=== PATIENT | male | born 1935 | race Caucasian/White ===

== ENCOUNTER 2020-01-22 11:56 | Emergency (ER) | payer MEDICARE ==
[2020-01-22 13:35] VITALS: BP 150/71; PULSE 100
[2020-01-22] MEDS ORDERED: Acetaminophen 325 MG Tab PO ONE (13:38)
[2020-01-22] MEDS ORDERED: Acetaminophen 325 MG Tab ONE (14:09)
[2020-01-22] MEDS ORDERED: Cyclobenzaprine 10 MG Tab PO ONE (14:15)
[2020-01-22] MEDS ORDERED: Cyclobenzaprine 10 MG Tab ONE (14:26)
--- NOTE | 2020-01-22 20:04 | ER ---
HISTORY OF PRESENT ILLNESS: An 84-year-old male who comes in by ambulance along with his daughter with complaints of migrating pain that is involving the left shoulder. It happens with movement and it seems to radiate down into the left side of his chest a little bit. He also has pains involving his abdomen and leg that is intermittent. It seems to come and go. At times, the patient is complaining of severe pain and other times he is pain free. He denies any problems with shortness of breath or feeling sick. The patient has no problems breathing. His daughter is concerned about constipation, but he tells me that he has had 2 bowel movements today and he does have bowel movements on a fairly regular basis as long as he uses his stool softener. The patient has not eaten anything today. There has not been any problems with vomiting or diarrhea. PAST MEDICAL HISTORY: 1. Chronic anemia. 2. Status post stroke with a deficit on the right side. 3. Dyslipidemia. 4. Hypertension. OBJECTIVE: GENERAL APPEARANCE: The patient is awake and alert. He is pleasant. He is very talkative. His speech is a little slurred because of the stroke in the past. VITAL SIGNS: Blood pressure 151/70, he is afebrile, pulse 92, O2 sats 99%. HEENT: Oral mucous membranes are slightly dry. Tonsils are not enlarged or injected. Pharynx not inflamed. NECK: Supple. MUSCULOSKELETAL: The patient moves his left arm and shoulder in different positions and he does this for a few seconds and it becomes very painful. He is pointing to the anterior aspect of the left shoulder. When I palpate this area, it feels like there are some firm knot in muscles when they are painful. LUNGS: Clear. CARDIAC: Heart sounds distinct. I do not hear a murmur. ABDOMEN: Soft, nontender. Bowel sounds are present, but hypoactive. SKIN: Warm and dry. LABORATORY DATA: CBC showing hemoglobin of 7.9. Comprehensive metabolic panel shows electrolytes are good. Kidney function reveals a BUN of 37, creatinine 1.52, GFR 44. Liver enzymes are normal. X-rays include an x-ray of the left shoulder, which shows fairly severe arthritis. I do not see any acute bony abnormality. X-rays of the abdomen reveal some stool buildup in the ascending and proximal transverse colon. I do not see any air-fluid levels or sign of obvious obstruction. DIAGNOSES: 1. Chronic anemia with a decreasing hemoglobin. 2. Migrating pain/myalgia. TREATMENT PLAN: The patient was given Tylenol here in the ER as well as Flexeril 5 mg after watching him for a while. It seemed like his pains have improved. When I last went into check on him and discussed discharge orders, the patient was eating a meal and he is not having any pain at this time. We will hold the Zocor for 1 week to see if this could be a statin induced myalgia. I will give him Flexeril 5 mg tablets, he can take 1 tablet every 8 hours as needed for muscle aches and pains, and he should be using Tylenol at least a couple of times a day, short-term. The patient should increase his laxative to b.i.d. dosing if he feels he is getting constipated and lastly he takes a baby aspirin 2 of them every day. I advised him to reduce this to 1 every other day. I do want the patient to follow up in about a week with his primary care provider here for recheck and recheck a hemoglobin level. Recheck should be sooner as needed. BARBARA/WALTER /[id number]
--- NOTE | 2020-01-24 08:31 | CR ---
DATE OF SERVICE: 01/22/20 CLINICAL DATA: shoulder pain LEFT SHOULDER: A single AP view was performed. 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 No definite fracture or dislocation. A single view is, however, inadequate to exclude a fracture. No other significant findings. [id number] [facility]
--- NOTE | 2020-01-24 08:37 | CR ---
DATE OF SERVICE: 01/22/20 CLINICAL DATA: possible constipation SUPINE AND UPRIGHT ABDOMEN: There is a large amount of stool present in the right colon. No evidence of obstruction or ileus. No free air. There are vascular calcifications in the pelvis and proximal thighs bilaterally. [id number] [facility]
== END 2020-01-22 15:05 | disposition home or self-care (01) ==
LOC: LB.ED 11:56
DX: M25.512 Pain in left shoulder (principal); D64.9 Anemia, unspecified; I10 Essential (primary) hypertension; I69.30 Unspecified sequelae of cerebral infarction
CPT/HCPCS: 36415; 73020; 74018; 80053; 85025; 85651; 99284; A9270; 99283; A0425; A0429

== ENCOUNTER 2020-12-30 12:28 | Emergency (ER) | payer MEDICARE ==
[2020-12-30] MEDS ORDERED: Sodium Chloride 0.9% 1,000 ML IV ONE (12:55)
[2020-12-30] MEDS ORDERED: EPINEPHrine 1:10,000 1 MG/10 ML Syringe IVPUSH ONE (12:55)
[2020-12-30] MEDS: EPINEPHrine 1:10,000 1 MG/10 ML Syringe IVPUSH SCH ×3 (13:02→13:07)
[2020-12-30] MEDS ORDERED: Sodium Bicarbonate 8.4% 50 MEQ/50 ML Syringe IVPUSH ONE (13:08)
[2020-12-30] MEDS ORDERED: Naloxone 2 MG/2 ML Syringe IVPUSH PRN (13:14)
--- NOTE | 2020-12-30 15:03 | EDM.PDOC ---
<Cristian Hanna S - Last Filed: 12/30/20 18:23> ED HPI GENERAL MEDICAL PROBLEM - General Chief Complaint: CPR in Progress Stated Complaint: CPR IN PROGRESS Time Seen by Provider: 12/30/20 12:30 Source of Information: Reports: EMS History Limitations: Reports: Other () - History of Present Illness INITIAL COMMENTS - FREE TEXT/NARRATIVE: 85-year-old male presents to the ED by EMS. Patient was picked up in [place], [place]. Initial dispatch was for patient in and out of consciousness. Per patient's girlfriend patient had been wheezing off and on for the past 3 days. Per EMS downtime approximately 10 to 15 minutes without CPR. CPR was initiated by the EMS crew and was continuous with arrival to the ED, who established an airway with a Mark device, and a Maik was providing adequate chest compressions. Upon arrival to the ED patient's downtime was approximately 30 to 40 minutes patient's skin was warm dry nonpallor, no obvious trauma, GCS of 111, patient unresponsive to painful stimuli. EMS relates nothing suspicious at scene no drug paraphernalia, weapons, or alcohol. - Related Data Allergies Allergy/AdvReac Type Severity Reaction Status Date / Time No Known Allergies Allergy Verified 01/22/20 12:30 Home Meds: Home Meds Aspirin [Halfprin] 162 mg PO DAILY 03/11/16 [History] Docusate Sodium 100 mg PO DAILY 03/11/16 [History] Lisinopril 20 mg PO DAILY 03/11/16 [History] Multivitamin/Iron/Folic Acid [One Daily Plus Iron] 1 each PO DAILY 03/11/16 [History] Simvastatin [Zocor] 40 mg PO DAILY 03/11/16 [History] Ferrous Sulfate 325 mg PO TIDMEALS #90 tablet 03/12/16 [Rx] Past Medical History Cardiovascular History: Reports: Heart Murmur, Hypertension, [place] Respiratory History: Reports: SOB Musculoskeletal History: Reports: Other (See Below) Other Musculoskeletal History: CVA RT sided weakness rt arm contractures, uses cane, Left shoulder pain getting worse Neurological History: Reports: TIA Hematologic History: Reports: Iron Deficiency Social & Family History - Family History Family Medical History: No Pertinent Family History - Caffeine Use Caffeine Use: Reports: Coffee ED ROS GENERAL - Review of Systems Review Of Systems: Unable To Obtain Reason Not Obtained: ED EXAM, CPR - Physical Exam Exam: See Below Text/Narrative:: Airwaywas originally secured by EMS via a Mark airway device, later during code airway was definitively secured with a 7.5 endotracheal tube, 23 at the teeth, confirmed by colorimetric device, bilateral lung sounds, negative epigastric sounds, finally confirmed by capnography. Breathingwas absent without artificial ventilations. Lung sounds were assessed and found to be clear bilaterally with artificial ventilation. No resistance was met during bag valve mask operations, patient did not need to be suctioned at any point during the cardiac arrest. Circulationupon arrival patient was in asystole, Maik device providing adequate CPR with good femoral pulses while device in operation, patient lost femoral pulses on every subsequent rhythm check. Patient's rhythm changed to a PEA at the rate of 110s to 120s that would quickly bradycardia down to an agonal rhythm during pulse checks. At no time was spontaneous circulation noted. Two peripheral IVs were established to supplement circulation. DisabilityGCS 1 1 1, patient unresponsive to painful stimuli. Exposeupon exposing patient's full body blood sweep was negative, no obvious trauma was noted, no rigor mortis noted, no dependent lividity is set in, patient was still warm to the touch. By the time was called at 1318 patient had had active CPR for 45 to 50 minutes with a total downtime of approximately 1 hour. General Appearance: Other Eye Exam: Bilateral Eye: Other (Fixed and dilated at 4 mm) Throat/Mouth: Other (Dentures, no obvious trauma to the oropharynx, minor amount of collection of saliva in the posterior pharynx was seen during intubation) Head: Atraumatic, Normocephalic Neck: Other (JVD present, trachea midline, no subcutaneous air noted) Respiratory Chest: Other (Bilateral lung sounds noted on auscultation prior to and after intubation) Cardiovascular: Pulse with Compression, CPR In Progress GI/Abdominal Exam: Soft, Pelvis Stable Extremities: Pedal Edema. No: Joint Swelling Neurological: Unresponsive Skin Exam: Warm, Dry, Normal Color, No Rash ED CPR PROCEDURES - Endotracheal Intubation Time of Intubation: 13:01 ET Intubation Indication: Cardiac Arrest Preparation: Balloon Tested, BVM Set Up, Difficult Airway Equip Airway Assessment: Other (Dentures, Maik device active) Pre-Oxygenation: Assisted with BVM, 100% FiO2 Placement: Orotracheal, Cuffed, Uncomplicated Placement Cords Visualized: Yes ETT Size In mm: 7.5 Number of Attempts: 1 Confirmed By: CO2 Indicator, Bilateral Breath Sounds, Other (Capnography positive for placement) Tube Secured By: By Provider Endotracheal Intubation Comment: First attempt, cords were visualized, tube was adjusted prior to attempt, endotracheal tube was seen passing vocal cords, first-pass success. #1 Interpretation EKG Date: 12/30/20 (Asystole, quick combo patches) #2 Interpretation EKG Date: 12/30/20 (PEA throughout the remainder of the code on multiple rhythm checks) Departure - Departure Time of Disposition: 13:18 Disposition: 20 Preliminary Cause of *Q: Cardiac Arrest Condition: Critical Clinical Impression: Cardiac arrest - Discharge Information *PRESCRIPTION DRUG MONITORING PROGRAM REVIEWED*: No *COPY OF PRESCRIPTION DRUG MONITORING REPORT IN PATIENT SONIA: No Referrals: PCP,None [Primary Care Provider] - Forms: ED Department Discharge Additional Instructions: CARSON Ugarte personally contacted patient's 2 daughters, and patient's girlfriend to notify them of Mr. Roper . - Assessment/Plan Assessment:: Assessment: CPR in progress, patient in full arrest, no obvious trauma Plan: History, airway breathing circulation, CPR, expedited physical exam, IV x2, epinephrine x4, sodium bicarb x1, Narcan x1, endotracheal intubation, cardiac arrest team queried for input, time of 1318, COVID-19 swab postmortem based on patient's girlfriends report of symptoms prior to arrest called by Cristian Hanna PA-C. <Florencio Worthy - Last Filed: 12/31/20 13:21> Course - Orders/Labs/Meds Orders: Active Orders 24 hr Category Date Time Status RT Airway Intubation [RC] ASDIRECTED Care 12/30/20 12:55 Active Labs: Laboratory Tests 12/30/20 Range/Units 14:28 SARS-CoV-2 RNA (DOV) Negative (NEGATIVE) Meds: Medications Discontinued Medications Generic Name Dose Route Start Last Admin Trade Name Freq PRN Reason Stop Dose Admin Epinephrine HCl 1 mg 12/30/20 12:55 12/30/20 16:17 Epinephrine 1:10,000 1 Mg/10 Ml Syringe IVPUSH 12/30/20 12:56 1 mg ONETIME ONE Administration Epinephrine HCl 1 mg 12/30/20 12:55 12/30/20 13:07 Epinephrine 1:10,000 1 Mg/10 Ml Syringe IVPUSH 01/02/21 12:56 1 mg SEECOMMENT RICKI Administration Sodium Chloride 1,000 mls @ 0 mls/hr 12/30/20 12:55 12/30/20 12:55 Normal Saline IV 12/30/20 12:56 1,000 mls/hr .BOLUS ONE Administration KVO Naloxone HCl 2 mg 12/30/20 13:14 12/30/20 13:14 Naloxone 2 Mg/2 Ml Syringe IVPUSH 2 mg ONETIME PRN Administration Other Sodium Bicarbonate 50 meq 12/30/20 13:08 12/30/20 16:23 Sodium Bicarbonate 8.4% 50 Meq/50 Ml Syringe IVPUSH 12/30/20 13:09 50 meq ONETIME ONE Administration - Assessment/Plan Admission H&P: Please use this note as an admission H&P Plan: Patient was seen and examined, along with JARRED Hanna. Agree with the above examination, findings and plan.
== END 2020-12-30 13:18 | disposition expired ==
LOC: LB.ED 12:28
DX: I46.9 Cardiac arrest, cause unspecified (principal); I10 Essential (primary) hypertension; I25.2 Old myocardial infarction; Z79.82 Long term (current) use of aspirin; Z79.899 Other long term (current) drug therapy; Z20.822 Contact with and (suspected) exposure to COVID-19
CPT/HCPCS: 31500; 92950; 96374; 99285; A0425; A0429; J0171; J2310; J7030; U0002